=== PATIENT | male | born 1975 | race Caucasian/White ===

== ENCOUNTER → 2017-08-17 | Day surgery (SDC) | payer OTHER ==
[~2017-08-17] MED LIST: CEFAZOLIN SOD 1 GM/NS 50ML 50 ML IV ONE; DEXAMETHASONE SOD PHOS INJ 4 MG/ML VIAL IV ONE; EPINEPHRINE 1 MG/ML 30ML VIAL ONE; EPINEPHRINE HCL INJ 1 MG/ML AMP ONE; FENTANYL CITRATE/PF 100MCG/2 ML INJ ONE; LIDOCAINE 2%/ EPINEPHRINE 20ML MDV ONE; LIDOCAINE HCL 2% LOCAL INJ 5 ML SDV VIAL INJ ONE; LISINOPRIL-HCT1 EACH PO; MIDAZOLAM HCL 2 MG/2 ML VIAL ONE; ONDANSETRON HCL INJ 2 MG/ML VIAL IV ONE; PROPOFOL IV EMULSION 10 MG/ML 20 ML VIAL IV ONE; ROCURONIUM BROMIDE 10 MG/ML 5ML VIAL IV ONE; ROPIVACAINE 0.5% 5 MG/ML 30 ML SDV ONE; SEVOFLURANE INHAL SOLN 250 ML PEN BTL INH ONE
--- NOTE | 2017-08-17 14:44 | Operative Report ---
DATE OF PROCEDURE: August 17, 2017 DRIVE IN THEATER ATTENDANT: Hill Cagle PA-C The patient was brought to the operating room for induction of anesthesia. Throughout this case, my PA's assistance was necessary for retraction of soft tissue and positioning of the extremity. This allows for efficient and technically successful execution of the operation and is considered medically necessary. PREOPERATIVE DIAGNOSIS: Right shoulder rotator cuff tear. POSTOPERATIVE DIAGNOSIS: Right shoulder rotator cuff tear. PROCEDURE: Right shoulder arthroscopy, subacromial decompression and rotator cuff repair. INDICATIONS: The patient is a 41-year-old gentleman who has clinic signs and symptoms consistent with a rotator cuff tear after an accident about 4 months ago. He has failed to make progress with conservative management. We plan on right shoulder arthroscopy with subacromial decompression and rotator cuff repair. DESCRIPTION OF PROCEDURE: The patient was brought to the operating room and placed under general anesthetic. He was given a regional block and prophylactic antibiotics in the holding area. He was carefully positioned on the shoulder table in the beach chair position. His large size required additional time and personnel. His right upper extremity was prepped and draped in a sterile manner. A preoperative time out was performed. A standard posterior arthroscopy portal was established. The shoulder was insufflated with sterile saline and systematically inspected. He was indeed noted to have a large tear of the entire supraspinatus and infraspinatus insertion. The subscapularis was intact and stable. The glenohumeral surfaces were generally well preserved. The labrum and biceps anchor at the supraglenoid tubercle were intact and stable. A lateral working portal had been established, and a probe could be introduced into the shoulder joint through the tear. Graspers were used to help mobilize the tendon tear. A mechanical shaver was used to debride the articular surface of the rotator cuff tear. This was debrided back to more healthy tissue. The scope was then placed into the subacromial space. An aggressive subacromial bursectomy was performed to delineate the bursal surface of the rotator cuff tear. A bony decompression was performed with an Electroblade 5.5 mm shaver. The lateral gutters were opened up. The greater tuberosity was decorticated. An Arthrex SpeedBridge double-row construct was used to repair the tendon. Two marine pilot holes were placed in the articular margin about 2 cm apart. Bioabsorbable suture anchors pre-loaded with dual FiberTapes were seated. Excellent bone quality was encountered. The Arthrex side-loading Scorpion suture passer was used to pass the FiberTape through healthy portions of the tendon. An anterior shuttle portal was established. Secondary superior lateral suture anchors were then used to secure the FiberTape to the proximal lateral humerus. This was performed under tension. Nice secure fixation was felt to be obtained. The tendon was reprobed and noted to have good reapproximation to the greater tuberosity. There was a single small "dog ear" flap towards the anterior repair. One of the auxiliary sutures was passed using the Scorpion suture passer one final time. This was tied arthroscopically and improved the repair. The arthroscopic instruments were then removed. The portal incisions were closed with nylon stitches. A sterile bandage was applied. He will be placed into an UltraSling. Estimated blood loss was 10 mL. At the end of the procedure, all needle and sponge counts were correct. Job#: [id number]
== END | disposition home or self-care (01) ==
LOC: OR 08:04
PROVIDERS: ATTEND Specialist
DX: S46.021A Laceration of muscle(s) and tendon(s) of the rotator cuff of right shoulder, initial encounter (principal); I10 Essential (primary) hypertension; W01.0XXA Fall on same level from slipping, tripping and stumbling without subsequent striking against object, initial encounter; Y92.009 Unspecified place in unspecified non-institutional (private) residence as the place of occurrence of the external cause; Z01.810 Encounter for preprocedural cardiovascular examination; Z68.38 Body mass index [BMI] 38.0-38.9, adult
CPT/HCPCS: 29827; 93005; C1713; J0171; J1100; J2001 ×2; J2250; J2405; J2795